=== PATIENT | female | born 1955 | race Caucasian/White ===

== ENCOUNTER → 2023-10-22 16:16 | Outpatient (REF) | payer MEDICARE, BC, SELFPAY ==
[2023-10-22 17:44] LABS: % Basophils 0.7 % (0-2); % Eosinophils 1.4 % (0-6); % Immature Granulocytes 0.3 % (0-0.5); % Monocytes 7.7 % (1.7-9.3); % Neutrophils 52.9 % (42.2-75.2); Absolute Basophils 0.1 10^3/uL (0-0.2); Absolute Eosinophils 0.1 10^3/uL (0-0.7); Absolute Lymphocytes 2.7 10^3/uL (1.2-3.4); Absolute Monocytes 0.6 10^3/uL (0.1-0.6); Absolute Neutrophils 3.9 10^3/uL (1.4-6.5); Hematocrit 39.4 % (37.0-47.0); Hemoglobin 13.6 g/dL (12.0-16.0); Mean Corp Hgb Conc. 34.5 g/dL (33.0-37.0); Mean Corpuscular Hgb 30.8 pg (27.0-31.0); Mean Corpuscular Volume 89.3 fL (81.0-99.0); Mean Platelet Volume 9.9 fL (7.4-10.4); Nucleated Red Blood Cells % 0 %; Platelet Count 265 10^3/uL (130-400); Red Blood Cell Count 4.41 10^6/uL (4.20-5.40); Red Cell Dist. Width 13.4 % (11.5-14.5); White Blood Cell Count 7.3 10^3/uL (4.8-10.8)
[2023-10-22 18:36] LABS: ALT (SGPT) 27 U/L (0-35); AST (SGOT) 31 U/L (14-36); Albumin 4.4 g/dl (3.5-5.0); Alkaline Phosphatase 47 U/L (38-126); Blood Urea Nitrogen 17 mg/dl (7-17); Calcium 10.3 mg/dl (8.4-10.2); Carbon Dioxide 32 mmol/L (22-30); Chloride 95 mmol/L (98-107); Glucose 97 mg/dl (70-99); HDL Cholesterol 84 mg/dl; LDL Cholesterol, Calculated 61 mg/dl; Potassium 3.8 mmol/L (3.5-5.1); Sodium 137 mmol/L (135-145); Total Bilirubin 0.7 mg/dl (0.2-1.3); Total Cholesterol 178 mg/dl (50-199); Total Protein 7.1 g/dl (6.3-8.2); Triglyceride 165 mg/dl (10-149); Very Low Density Lipoprotein 33 mg/dl (0-30); eGFR 55.42
[2023-10-22 18:45] LABS: Vitamin D, 25-OH*** 74.3 ng/mL (30-80)
[2023-10-22 18:47] LABS: Microalbumin, Random Urine < 0.6 mg/dl (0.6-1.7)
[2023-10-22 18:59] LABS: TSH 1.23 uIU/ml (0.47-4.68)
[2023-10-22 19:20] LABS: Vitamin B12 507 pg/ml (239-931)
[2023-10-23 10:57] LABS: Glycohemoglobin (HgbA1c) 5.9 % (4.0-5.6)
== END ==
LOC: REG 16:16
PROVIDERS: ATTENDING PHYSICIAN Surgery; FAMILY PHYSICIAN Family Medicine
DX: Q27.8 Other specified congenital malformations of peripheral vascular system (principal); N18.31 Chronic kidney disease, stage 3a; E78.2 Mixed hyperlipidemia; R73.03 Prediabetes; I11.9 Hypertensive heart disease without heart failure; M85.852 Other specified disorders of bone density and structure, left thigh; I48.0 Paroxysmal atrial fibrillation; E53.8 Deficiency of other specified B group vitamins
CPT/HCPCS: 36415; 80053; 80061; 82043; 82306; 82570; 82607; 83036; 84443; 85025

== ENCOUNTER → 2023-10-25 08:47 | Outpatient (REF) | payer MEDICARE, BC, SELFPAY | LOC: RAD 08:47 | PROVIDERS: ATTENDING PHYSICIAN Surgery; FAMILY PHYSICIAN Family Medicine | DX: M85.852 Other specified disorders of bone density and structure, left thigh (principal); Q27.8 Other specified congenital malformations of peripheral vascular system | CPT/HCPCS: 71275; 77080; Q9967 ==

== ENCOUNTER → 2023-10-26 15:25 | Outpatient (REF) | payer MEDICARE, BC, SELFPAY | LOC: PAVMRI 15:25 | PROVIDERS: ATTENDING PHYSICIAN Family Medicine | DX: M51.36 Other intervertebral disc degeneration, lumbar region (principal); M54.50 Low back pain, unspecified; G89.29 Other chronic pain | CPT/HCPCS: 72148 ==

== ENCOUNTER → 2023-11-19 08:13 | Outpatient (REF) | payer MEDICARE, BC, SELFPAY | LOC: PAVMRI 08:13 | PROVIDERS: ATTENDING PHYSICIAN Specialist; FAMILY PHYSICIAN Family Medicine | DX: G95.9 Disease of spinal cord, unspecified (principal) | CPT/HCPCS: 72141 ==

== ENCOUNTER → 2024-09-05 11:11 | Outpatient (REF) | payer MEDICARE, BC, SELFPAY | LOC: WDC 11:11 | PROVIDERS: ATTENDING PHYSICIAN Family Medicine | DX: Z12.31 Encounter for screening mammogram for malignant neoplasm of breast (principal) | CPT/HCPCS: 77063; 77067 ==

== ENCOUNTER 2025-04-03 06:31 | Day surgery (SDC) | payer MEDICARE, BC, SELFPAY | END 2025-04-03 11:06 | disposition home or self-care (01) | LOC: GI 06:31 | PROVIDERS: ATTENDING PHYSICIAN Specialist | DX: Z12.11 Encounter for screening for malignant neoplasm of colon (principal); D12.5 Benign neoplasm of sigmoid colon; K57.30 Diverticulosis of large intestine without perforation or abscess without bleeding; K64.8 Other hemorrhoids; R19.7 Diarrhea, unspecified | CPT/HCPCS: 45385; 45380; 88305 ==

== ENCOUNTER 2025-08-17 03:12 | Emergency (ER) | payer MEDICARE, BC, SELFPAY ==
[2025-08-17 03:14] VITALS: BP 142/74
[2025-08-17 03:16] VITALS: BMI 24.8
[2025-08-17 03:17] VITALS: BP 142/74
[2025-08-17 04:00] VITALS: BP 134/80
--- NOTE | 2025-08-17 04:09 | ED.GENMED ---
History of Present Illness
General
Chief Complaint: Musculo-Skeletal Complaint
Source: patient and spouse
Exam Limitations: none
Time Seen by Provider: 08/17/25 03:14
Nursing documentation reviewed up to this point in time: agreed with
History of Present Illness
History of Present Illness:
70-year-old female past medical history of A-fib status post ablation currently on Eliquis presenting to the emergency department today with concerns of left-sided neck pain and spasm. Occurred yesterday evening roughly 9 hours prior to arrival.
Denies any specific injury to the area has had muscle spasm in the past this feels very similar. Increased discomfort with head rotation to the left. Did take 15 mg of Valium 9 hours ago without relief. Denies any numbness weakness any headache
any nausea vomiting.
Past History
Past History
ED Past Medical History: Other (M�ni�re's, hyperlipidemia)
ED Past Surgical History: Orthopedic (spinal)
Social History
Tobacco: Non-smoker
Alcohol: None
Personal:
Living: with family
Family History
Family History: Hypertension
Review of Systems
Review of Systems
Allergies reviewed?: Yes
All Other Systems: ROS reviewed and negative except as documented in HPI and ROS
Phy Exam
Physical Exam
Physical Exam:
GENERAL: Alert , in no apparent distress
EYE: pupils equal and reactive
NECK: Supple, no significant adenopathy.
ENT: Tightness to the left sided sternocleidomastoid increased discomfort with any rotation of the head to the left o/p clr, mmm.
CARDIAC: Regular rate and rhythm .
LUNGS: Clear breath sounds bilaterally, no acute respiratory distress, no wheezes/rales/rhonchi
ABDOMEN: Soft, without focal tenderness, no r/g, no cvat
NEUROLOGICAL: Alert and oriented, no focal neuro deficits
SKIN: Warm and dry, skin intact.
MUSCULOSKELETAL: No edema, well perfused.
PSYCH: Normal and appropriate interaction.
Course
Orders/Labs/Results
Orders:
Orders
08/17/25 04:01
HYDROmorphone [Dilaudid] 0.5 mg IV NOW STA
08/17/25 04:13
BMP [Basic Metabolic Panel] Urgent
CBC/With Diff [Complete Blood Count/With Diff] Urgent
Magnesium Urgent
08/17/25 05:16
Ketorolac [Toradol] 7.5 mg IV NOW STA
08/17/25 05:55
HYDROmorphone [Dilaudid] 0.25 mg IV NOW STA
Abnormal Lab Results
08/17/25
04:13
Absolute Neuts (auto) 7.7 H 10^3/uL
(1.4-6.5)
Absolute Monos (auto) 0.7 H 10^3/uL
(0.1-0.6)
Neutrophils % 75.8 H %
(42.2-75.2)
Lymphocytes % 16.1 L %
(20.5-51.1)
Glucose 125 H mg/dl
(70-99)
08/17/25 04:13
08/17/25 04:13
Vital Signs
Initial and Last Documented VS:
Initial Vital Signs
BP
142/74
08/17/25 03:14
Last Documented Vital Signs
Temp Pulse Resp BP Pulse Ox
98.1 F 70 18 123/58 95
08/17/25 03:17 08/17/25 03:17 08/17/25 04:00 08/17/25 05:00 08/17/25 05:45
MDM/Problems Addressed
MDM/Problems Addressed:
70-year-old female presenting to the emergency department today with concerns of left sided sternocleidomastoid spasm. This seems to be reproducible with move and positioning and palpation. This is consistent with muscle spasm unlikely be any
referred pain. No neurologic symptoms. Patient was give medications here with some improvement of symptoms. Stable for outpatient management at this point. Return precautions given.
*Pulse Oximetry
SaO2: 98
Oxygen Mode of Delivery: Room air
Patient hypoxic: no (95)
*Critical Care Note
Total Time (30-74mins, 75-104mins- exclusive of procedures): Not Applicable
ED Attending Note
-
Portions of this chart may have been created with voice recognition software.� Occasional wrong word or��sound alike� substitutions may have occurred due to the inherent limitations of voice recognition software.
Discharge Plan
Departure
Patient Disposition: Home (Routine Discharge)
Date of Disposition: 08/17/25
Time of Disposition: 06:05
Patient with high blood pressure during this ER visit?: No
Condition: Good
Covid-19: Not Applicable
Discharge Problem:
Neck muscle spasm
Instructions: Muscle Strain (DC)
Prescriptions:
New
tizanidine 4 mg capsule
4 mg PO BID PRN (Reason: muscle spasticity) Qty: 7 0RF
No Action
metoprolol succinate 25 MG tablet extended release 24 hr
25 mg PO DAILY Qty: 0 0RF
triamterene-hydrochlorothiazid 37.5-25 mg Tablet
1 tab PO DAILY
rosuvastatin 40 mg Tablet
40 mg PO DAILY
bupropion HCl [Wellbutrin XL] 300 mg Tablet Extended Release 24 Hr
300 mg PO DAILY
escitalopram oxalate [Lexapro] 5 mg Tablet
5 mg PO DAILY
Eliquis 5 mg Tablet
5 mg PO BID
diazepam 5 MG tablet
5 mg PO TIDPRN PRN (Reason: ANXIETY)
pantoprazole [pantoprazole] 40 mg tablet,delayed release (DR/EC)
40 mg PO DAILY Qty: 14 0RF
Rx Instructions:
Take daily for 2 weeks after procedure, then STOP
cyclobenzaprine 10 mg tablet
10 mg PO TID PRN (Reason: muscle spasm) Qty: 20 0RF
Referrals:
UNKNOWN,NO INTERVIEW [Family Provider]
Activity Restrictions/Additional Instructions:
You came to the emergency department today with concerns of spasm of your neck. Please take the medication and otherwise follow closely with the primary care doctor. Return for any worsening, new or concerning symptoms.
Interventions
Interventions:
*Risk Screen - Suicide Last Done: 08/17/25 03:23
*General Assessment Last Done: 08/17/25 03:20
*Neglect/Abuse Screening Last Done: 08/17/25 03:23
*ED COVID-19 Vaccine History Last Done: 08/17/25 03:20
*ED Influenza Vaccine History Last Done: 08/17/25 03:20
[facility] Risk Assessment Tool Last Done: 08/17/25 03:17
ED-Musculoskeletal Assessment Last Done: 08/17/25 03:23
Discharge Date and Time
Print Language: [place]
[2025-08-17] MEDS: DILAUDID 0.5 MG IV (04:11)
[2025-08-17 04:21] LABS: Hematocrit 40.4 % (37.0-47.0); Hemoglobin 13.9 g/dL (12.0-16.0); Mean Corp Hgb Conc. 34.4 g/dL (33.0-37.0); Mean Corpuscular Volume 87.4 fL (81.0-99.0); Nucleated Red Blood Cells % 0 %; Platelet Count 260 10^3/uL (130-400); Red Cell Dist. Width 12.9 % (11.5-14.5)
[2025-08-17 04:43] LABS: Blood Urea Nitrogen 14 mg/dl (7-17); Calcium 9.9 mg/dl (8.4-10.2); Carbon Dioxide 29 mmol/L (22-30); Chloride 98 mmol/L (98-107); Estimated Creatinine Clearance 63 ml/min; Glucose 125 mg/dl (70-99); Magnesium 1.9 mg/dl (1.6-2.3); Potassium 3.6 mmol/L (3.5-5.1); Sodium 135 mmol/L (135-145); eGFR > 60.00
[2025-08-17 05:00] VITALS: BP 123/58
[2025-08-17] MEDS: TORADOL 7.5 MG IV (05:24)
[2025-08-17 06:00] VITALS: BP 116/63
[2025-08-17] MEDS: DILAUDID 0.25 MG IV (06:03)
== END 2025-08-17 06:38 | disposition home or self-care (01) ==
LOC: EMR 03:12
PROVIDERS: Physician Assistant; EMERGENCY PHYSICIAN Student in an Organized Health Care Education/Training Program
DX: M62.838 Other muscle spasm (principal); I48.91 Unspecified atrial fibrillation; E78.5 Hyperlipidemia, unspecified; Z79.01 Long term (current) use of anticoagulants; Z82.49 Family history of ischemic heart disease and other diseases of the circulatory system
CPT/HCPCS: 99284; 96374; 96375; 96376; 80048; 83735; 85025